=== PATIENT | male | born 1940 | race Caucasian/White ===

== ENCOUNTER 2017-05-02 20:17 | Emergency (ER) | payer MEDICARE, OTHER ==
--- NOTE | 2017-05-02 21:37 | ER Document Report ---
ED Medical Screen (RME) - General Chief Complaint: Flu Symptoms Stated Complaint: POSSIBLE FLU Time Seen by Provider: 05/02/17 21:35 Mode of Arrival: Wheelchair Information source: Patient Notes: 76-year-old male presents to ED with flulike symptoms for over a week. He states he was seen by his primary doctor a week ago and given Tamiflu. He states that he has continued to have body aches and that is lungs sound like he is having crackles in his left upper lobe. His lung sounds are very diminished on the left. Respirations are regular and unlabored and speaking in full sentences. I have greeted and performed a rapid initial assessment of this patient. A comprehensive ED assessment and evaluation of the patient, analysis of test results and completion of medical decision making process will be conducted by an additional ED providers. TRAVEL OUTSIDE OF THE [place] 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
--- NOTE | 2017-05-02 21:55 | RADIOLOGY REPORT (SQ) ---
EXAM DESCRIPTION: CHEST PA/LAT COMPLETED DATE/TIME: 05/02/2017 9:45 pm REASON FOR STUDY: Diminished lung sounds on left COMPARISON: 05/04/2014 EXAM PARAMETERS: NUMBER OF VIEWS: two views TECHNIQUE: Digital Frontal and Lateral radiographic views of the chest acquired. RADIATION DOSE: NA LIMITATIONS: none FINDINGS: LUNGS AND PLEURA: No opacities, masses or pneumothorax. No pleural effusion. MEDIASTINUM AND HILAR STRUCTURES: No masses or contour abnormalities. HEART AND VASCULAR STRUCTURES: Heart normal size. No evidence for failure. BONES: No acute findings. HARDWARE: Pacemaker defibrillator. OTHER: No other significant finding. IMPRESSION: No acute pulmonary disease. TECHNICAL DOCUMENTATION: JOB ID: [id number] [employer]- All Rights Reserved
[2017-05-02 22:12] LABS: ABSOLUTE BASOPHILS # (AUTO) 0.1 10^3/uL (0.0-0.2); ABSOLUTE LYMPHOCYTES (AUTO) 0.7 10^3/uL (0.5-4.7); ABSOLUTE MONOCYTES (AUTO) 0.8 10^3/uL (0.1-1.4); BASOPHILS % (AUTO) 0.5 % (0-2); EOSINOPHILS % (AUTO) 0.1 % (0-6); HEMATOCRIT 47.6 % (37.9-51.0); HEMOGLOBIN 15.8 g/dL (13.5-17.0); LYMPHOCYTES % (AUTO) 6.2 % (13-45); MEAN CORPUSCULAR HEMOGLOBIN 28.3 pg (27.0-33.4); MEAN CORPUSCULAR HGB CONC 33.1 g/dL (32.0-36.0); MEAN CORPUSCULAR VOLUME 86 fl (80-97); MONOCYTES % (AUTO) 6.7 % (3-13); PLATELET COUNT 253 10^3/uL (150-450); RED BLOOD COUNT 5.57 10^6/uL (4.35-5.55); RED CELL DISTRIBUTION WIDTH 15.5 % (11.5-14.0); SEGMENTED NEUTROPHILS % (AUTO) 86.5 % (42-78); TOTAL CELLS COUNTED % (AUTO) 100 %; WHITE BLOOD COUNT 11.6 10^3/uL (4.0-10.5)
[2017-05-02 22:42] LABS: ALANINE AMINOTRANSFERASE 22 U/L (21-72); ALBUMIN 4.1 g/dL (3.5-5.0); ALKALINE PHOSPHATASE 79 U/L (38-126); ANION GAP 12 (5-19); ASPARTATE AMINO TRANSFERASE 22 U/L (17-59); BILIRUBIN,DIRECT 0.3 mg/dL (0.0-0.4); BILIRUBIN,TOTAL 1.2 mg/dL (0.2-1.3); BLOOD UREA NITROGEN 11 mg/dL (7-20); CALCIUM 9.3 mg/dL (8.4-10.2); CARBON DIOXIDE 25 mmol/L (22-30); CHLORIDE 104 mmol/L (98-107); GLUCOSE 119 mg/dL (75-110); POTASSIUM 4.4 mmol/L (3.6-5.0); SODIUM 140.9 mmol/L (137-145); TOTAL PROTEIN 6.7 g/dL (6.3-8.2)
[2017-05-03] MEDS ORDERED: ALBUTEROL SULFATE 0.083% NEB 2.5 MG/3 ML AMPUL NEB ONE (00:14)
--- NOTE | 2017-05-03 00:25 | ER Document Report ---
ED General - General Chief Complaint: Flu Symptoms Stated Complaint: POSSIBLE FLU Time Seen by Provider: 05/02/17 21:35 Mode of Arrival: Wheelchair Notes: Patient is a 76-year-old male presents with complaint of body aches and flulike symptoms for a week. He is placed on Tamiflu as well as azithromycin by his primary care doctor. Said some cough and congestion. No vomiting no diarrhea. No abdominal pain. He says he just continues to have body aches continues to cough and therefore is come to the ER. He was a smoker 50 years ago. Does not smoke anymore. He does have history of heart disease. 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 He does have a pacemaker defibrillator. He says he is not had any defibrillation from his pacemaker fibrillator. He has no other complaints this time. No fevers at home he checks his temp. Other complaints at this time. TRAVEL OUTSIDE OF THE [place] 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 Body aches EENT: Congestion CARDIOVASCULAR: Denies chest pain. RESPIRATORY: Cough. GASTROINTESTINAL: Denies abdominal pain. Denies nausea, vomiting, or diarrhea. Denies constipation. Last BM: GENITOURINARY: Denies difficulty urinating, painful urination, burning, frequency, or blood in urine. FEMALE GENITOURINARY: Denies vaginal bleeding, abnormal or irregular periods. LMP: MUSCULOSKELETAL: Denies neck or back pain or joint pain or swelling. SKIN: Denies rash or skin lesions. NEUROLOGICAL: Denies altered mental status or loss of consciousness. Denies headache. Denies weakness or paralysis or loss of use of either side. Denies problems with gait or speech. Denies sensory or motor loss. ALL OTHER SYSTEMS REVIEWED AND NEGATIVE. Physical Exam - Notes Notes: General Appearance: Well nourished, alert, cooperative, no acute distress, no obvious discomfort. Well-appearing. Vitals: reviewed, See vital signs table. Head: no swelling or tenderness to the head Eyes: PERRL, EOMI, Conjuctiva clear Mouth: No decreasd moisture Throat: No tonsillar inflammation, No airway obstruction, No lymphadenopathy Lungs: Scattered wheezes or rhonchi in the bases of both lung farr., No accessory muscle use, good air exchange bilaterally. Heart: Normal rate, Regular rythm, No murmur, no rub Abdomen: Normal BS, soft, No rigidity, No abdominal tenderness, No guarding, no rebound, no abdominal masses, no organomegaly Extremities: strength 5/5 in all extremities, good pulses in all extremities, no swelling or tenderness in the extremities, no edema. Skin: warm, dry, appropriate color, no rash Neuro: speech clear, oriented x 3, normal affect, responds appropriately to questions. Course - Re-evaluation Re-evalutation: 05/03/17 00:55 Patient looks well. He has no distress. His vital signs are good. He has some coarse breath sounds in the base of his lungs sound consistent with some mucus in the base of his lungs. Chest x-ray is negative for pneumonia. Is already on antibiotics and Tamiflu. I do not think further antibiotic treatment will be of benefit at this time. I will give him an inhaler to help him clear some the mucus from his lungs and help him be able to cough it out easier. I informed him that if he gets feeling worse, difficulty breathing, or fevers that he must return to the ER immediately. Patient and son agree with plan and he will be discharged home. Dictation of this chart was performed using voice recognition software; therefore, there may be some unintended grammatical errors. - Laboratory Result Diagrams: 05/02/17 21:22 05/02/17 21:22 Laboratory results interpreted by me: 05/02/17 05/02/17 21:22 21:22 WBC 11.6 H RBC 5.57 H RDW 15.5 H Seg Neutrophils % 86.5 H Lymphocytes % 6.2 L Absolute Neutrophils 10.0 H Glucose 119 H Discharge - Discharge Clinical Impression: Bronchitis Condition: Good Disposition: HOME, SELF-CARE Additional Instructions: Please use the albuterol inhaler as 2 puffs every 4 hours. This will help you clear mucous from your lungs. Please return to the ER immediately if you develop fevers, difficulty breathing, or if you feel that you are worsening. Please follow up with a physician on Saturday for reevaluation.
[2017-05-03] MEDS ORDERED: ALBUTEROL SULFATE HFA (90 MCG/PUFF) 8 GM MDI (1 MDI/ER DISP) IH ONE (00:52)
[2017-05-03 01:09] VITALS: BP 137/90
== END 2017-05-03 01:10 | disposition home or self-care (01) ==
LOC: ER 20:17
DX: J40 Bronchitis, not specified as acute or chronic (principal); R52 Pain, unspecified; R05 Cough; I25.2 Old myocardial infarction; Z95.1 Presence of aortocoronary bypass graft; Z95.810 Presence of automatic (implantable) cardiac defibrillator; Z87.891 Personal history of nicotine dependence; Z88.8 Allergy status to other drugs, medicaments and biological substances
CPT/HCPCS: 94640; 99283; 36415; 85025; 80053; 71046; A9270; J3490

== ENCOUNTER → 2017-05-09 | Outpatient (CLI) | payer MEDICARE ==
[2017-05-09 12:17] LABS: INTERNATIONAL RATION (INR) 2.74; PROTHROMBIN TIME 30.4 SEC (11.4-15.4)
== END ==
LOC: OD 10:54
DX: I25.5 Ischemic cardiomyopathy (principal); G45.9 Transient cerebral ischemic attack, unspecified; I47.2 Ventricular tachycardia; Z79.01 Long term (current) use of anticoagulants
CPT/HCPCS: 36415; 85610

== ENCOUNTER → 2017-06-14 | Outpatient (CLI) | payer MEDICARE ==
[2017-06-14 11:43] LABS: INTERNATIONAL RATION (INR) 3.79; PROTHROMBIN TIME 39.1 SEC (11.4-15.4)
== END ==
LOC: OD 10:44
PROVIDERS: ATTEND Family Medicine
DX: Z79.01 Long term (current) use of anticoagulants (principal); G45.9 Transient cerebral ischemic attack, unspecified; I25.5 Ischemic cardiomyopathy; I25.6 Silent myocardial ischemia; I47.2 Ventricular tachycardia
CPT/HCPCS: 36415; 85610